=== PATIENT | female | born 1960 ===

== ENCOUNTER 2024-02-27 14:26 | Emergency (ER) | payer MEDICAID ==
[~2024-02-27] VITALS: Ht 157.5 cm; Wt 67.0 kg
[2024-02-27 14:36] VITALS: O2SAT 99
[2024-02-27 15:10] LABS: CLARITY URINE CLOUDY (CLEAR); COLOR URINE DARK YELLOW (YELLOW); GLUCOSE URINE NEGATIVE (NEGATIVE); KETONES URINE 1+ (NEGATIVE); LEUKOCYTE ESTERASE URINE TRACE (NEGATIVE); NITRITE URINE NEGATIVE (NEGATIVE); OCCULT BLOOD URINE 3+ (NEGATIVE); PROTEIN URINE 3+ (NEGATIVE); SPECIFIC GRAVITY URINE 1.027 (1.005-1.030)
[2024-02-27 15:25] LABS: BASOPHILS % 0.5 % (0.0-2.0); EOSINOPHILS % 0.1 % (0.0-5.0); HEMATOCRIT. 38.5 % (36.0-48.0); HEMOGLOBIN. 12.8 g/dL (12.0-16.0); LYMPHOCYTES % 20.4 % (20.0-50.0); MEAN CORPUSCULAR HEMOGLOBIN 29.1 pg (28.0-32.0); MEAN CORPUSCULAR HGB CONC 33.3 g/dL (31.0-37.0); MEAN CORPUSCULAR VOLUME 87.5 fL (81.0-99.0); MEAN PLATELET VOLUME 7.9 fl (7.4-10.4); MONOCYTES % 13.2 % (2.0-8.0); NEUTROPHILS % 65.8 % (40.0-76.0); PLATELET 251 x1000/uL (130-400); RED BLOOD CELL COUNT 4.39 mill/uL (4.2-5.4); RED CELL DISTRIBUTION WIDTH 13.4 % (11.6-14.6); WHITE BLOOD COUNT 5.9 x1000/uL (4.5-11.0)
[2024-02-27 15:29] LABS: CHLORIDE 102 mEq/L (98-107); POTASSIUM 3.5 mEq/L (3.5-5.1); SODIUM 136 mEq/L (136-145)
[2024-02-27 15:30] LABS: CALCIUM 10.5 mg/dL (8.7-10.4); CARBON DIOXIDE 25 mEq/L (21-32)
[2024-02-27 15:35] LABS: GLUCOSE 102 mg/dL (70-105); UREA NITROGEN BLOOD 11 mg/dL (9-23)
[2024-02-27 15:36] LABS: TROPONIN I HIGH SENSITIVITY 22 ng/L (3.0-34)
[2024-02-27 15:37] LABS: ALANINE AMINOTRANSFERASE 16 IU/L (10-49); ALBUMIN 5.2 g/dL (3.2-4.8); ASPARTATE AMINOTRANSFERASE 21 IU/L (<34); BILIRUBIN DIRECT 0.1 mg/dL (<=3.0); BILIRUBIN TOTAL 0.4 mg/dL (0.1-1.0); PROTEIN TOTAL 8.4 g/dL (6.0-8.3)
[2024-02-27 15:54] LABS: BACTERIA URINE NONE SEEN; HYALINE CASTS URINE 0-5 /lpf; SQUAMOUS EPITHELIAL CELL URINE 1+ /lpf (RARE/1+)
[2024-02-27] MEDS: ACETAMINOPHEN 325MG TABLET PO ONE (17:08)
[2024-02-27] MEDS: ONDANSETRON 4MG ODT PO ONE (17:09)
[2024-02-27] MEDS: SODIUM CHLORIDE 0.9% 1,000 ML IV ONE (17:38)
[2024-02-27] MEDS ORDERED: ONDA4TAB50 MT (18:00)
[2024-02-27 18:35] VITALS: BP 115/71; PULSE 72; RESP 16; TEMP 98
== END 2024-02-27 18:42 | disposition home or self-care (01) ==
LOC: ER 14:26
DX: R11.2 Nausea with vomiting, unspecified (principal); I49.9 Cardiac arrhythmia, unspecified
CPT/HCPCS: 99284; 74176; 96360; 80076; 80048; 81003; 81025; 85025; 86850; 86900; 86901; 84484; 36415; 93005; Q0162; J7030